=== PATIENT | male | born 1995 | race Caucasian/White ===

== ENCOUNTER 2021-10-31 18:42 | Emergency (ER) | payer BC ==
[2021-10-31 19:10] VITALS: O2SAT 98
[2021-10-31] MEDS ORDERED: TORAdol 30 mg Injection IM ONE (19:20)
[2021-10-31] MEDS ORDERED: Norflex 60 MG/2 ML IM ONE (19:21)
[2021-10-31] MEDS ORDERED: TORAdol 30 mg Injection ONE (19:23)
[2021-10-31] MEDS ORDERED: Norflex 60 MG/2 ML ONE (19:23)
--- NOTE | 2021-10-31 19:45 | ERPHSYRPT ---
- History of Present Illness Time Seen by Provider: 10/31/21 18:57 Source: patient Exam Limitations: no limitations Patient Subjective Stated Complaint: back pain Triage Nursing Assessment: Patient ambulated back to ED and transferred to bed per self. Patient A+O x3. Patient's skin pink, warm and dry. Patient complains of right lower sided back pain that radiates down right leg that started today. Patient complains of constant aching pain with intermittent sharp 9/10. Patient states this am he was working on Oatmeal at [employer] then noticed the pain. Physician History: 26 years old male with history of low back pain presented to the ER with sudden onset right low back pain after he lifted a heavy drill at work. Pain is moderate to severe sharp nature in the right buttock with radiation to right thigh posteriorly. Aggravated with ambulation and partial relief with being still, denies associated numbness tingling weakness of lower extremity, loss of bowel or bladder control. No perineal numbness. Denies any midline back pain. Denies any popping or snapping sensation in the back. Timing/Duration: today, constant, sudden, worse Method of Injury: lifting Quality: radiating, sharp Back Pain Radiation: buttocks Severity of Pain-Max: severe Severity of Pain-Current: severe Modifying Factors: Improves With: rest. Worsens With: movement Associated Symptoms: denies symptoms, lower back pain Previous symptoms: same symptoms as today Allergies/Adverse Reactions: No Known Drug Allergies Allergy (Verified 10/31/21 19:03) Hx Tetanus, Diphtheria Vaccination/Date Given: No Hx Influenza Vaccination/Date Given: No Hx Pneumococcal Vaccination/Date Given: No Immunizations Up to Date: Yes Travel Risk - International Travel Have you traveled outside of the country in past 3 weeks: No - Coronavirus Screening Are you exhibiting any of the following symptoms?: No Close contact with a COVID-19 positive Pt in past 14-21 Days: No - Vaccine Status Have you recieved a Covid-19 vaccination: No - Review of Systems Constitutional: No Symptoms Eyes: No Symptoms Ears, Nose, & Throat: No Symptoms Respiratory: No Symptoms Cardiac: No Symptoms Abdominal/Gastrointestinal: No Symptoms Genitourinary Symptoms: No Symptoms Musculoskeletal: Back Pain Skin: No Symptoms Neurological: No Symptoms Psychological: No Symptoms Endocrine: No Symptoms Hematologic/Lymphatic: No Symptoms Immunological/Allergic: No Symptoms - Past Medical History Pertinent Past Medical History: Yes Neurological History: No Pertinent History ENT History: No Pertinent History Cardiac History: No Pertinent History Respiratory History: No Pertinent History Endocrine Medical History: No Pertinent History Musculoskeletal History: No Pertinent History GI Medical History: No Pertinent History History: No Pertinent History Psycho-Social History: No Pertinent History Male Reproductive Disorders: No Pertinent History Other Medical History: ATRIAL SEPTAL DEFECT, PULMONARY STENOSIS. - Past Surgical History Past Surgical History: No Neuro Surgical History: No Pertinent History Cardiac: No Pertinent History Respiratory: No Pertinent History Gastrointestinal: No Pertinent History Genitourinary: No Pertinent History Musculoskeletal: No Pertinent History Male Surgical History: No Pertinent History - Social History Smoking Status: Never smoker Exposure to second hand smoke: No Drug Use: none Patient Lives Alone: No - Nursing Vital Signs Nursing Vital Signs: Initial Vital Signs Temperature 96.7 F 10/31/21 19:04 Pulse Rate 79 10/31/21 19:04 Respiratory Rate 18 10/31/21 19:04 Blood Pressure 156/80 10/31/21 19:04 O2 Sat by Pulse Oximetry 98 10/31/21 19:04 Pain Scale Pain Intensity 9 - Physical Exam General Appearance: no apparent distress, alert Eye Exam: PERRL/EOMI, eyes nml inspection Ears, Nose, Throat Exam: normal ENT inspection, TMs normal, pharynx normal, moist mucous membranes Neck Exam: normal inspection, non-tender, supple, full range of motion Respiratory Exam: normal breath sounds, lungs clear Cardiovascular Exam: regular rate/rhythm, normal heart sounds Gastrointestinal Exam: soft, normal bowel sounds, No tenderness Back Exam: normal inspection, normal range of motion, muscle spasm, point tenderness (Right sacroiliac area. 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 Skin Exam: normal color SpO2 Interpretation: normal SpO2: 98 O2 Delivery: Room Air Ordered Tests: Medication Summary Discontinued Medications Generic Name Dose Route Start Last Admin Trade Name Freq PRN Reason Stop Dose Admin Ketorolac Tromethamine 30 mg 10/31/21 19:20 10/31/21 19:28 Ketorolac Tromethamine 30 Mg/Ml Inj IM 10/31/21 19:21 30 mg STAT ONE Administration Ketorolac Tromethamine Confirm 10/31/21 19:23 Ketorolac Tromethamine 30 Mg/Ml Inj Administered 10/31/21 19:24 Dose 30 mg .ROUTE .STK-MED ONE Orphenadrine Citrate 60 mg 10/31/21 19:21 10/31/21 19:28 Orphenadrine Citrate 60 Mg/2 Ml Amp IM 10/31/21 19:22 60 mg STAT ONE Administration Orphenadrine Citrate Confirm 10/31/21 19:23 Orphenadrine Citrate 60 Mg/2 Ml Amp Administered 10/31/21 19:24 Dose 60 mg .ROUTE .STK-MED ONE - Progress Progress: improved Progress Note: 10/31/21 patient does not have midline tenderness., Given Toradol and Norflex, on reevaluation feeling better. Negative neuro exam lower extremity. No signs of cauda equina. Do not think needs imaging. I believe is more of a strain, will continue with NSAIDs and muscle relaxants to go home, outpatient follow-up recommended. Discussed signs symptoms of worsening needing return to ER which he seems understanding. Stable for discharge. Counseled pt/family regarding: diagnosis, need for follow-up - Departure Departure Disposition: Home Clinical Impression: Low back pain Qualifiers: Chronicity: acute Back pain laterality: right Sciatica presence: with sciatica Sciatica laterality: sciatica of right side Qualified Code(s): M54.41 - Lumbago with sciatica, right side Condition: Stable Critical Care Time: No Referrals: CLOTILDE CULP MD [Primary Care Provider] - Follow up/PCP as directed (In 2 days for reevaluation) ORTHO - JENNIE DAVIS NP [NON-STAFF PHY W/O PRIVILEGES] - Follow up/PCP as directed (In 2 days for reevaluation) Instructions: Sciatica (DC) Additional Instructions: Neck Tylenol/ibuprofen as needed for pain. Follow-up with primary care and Ortho clinic for reevaluation. Return to ER for intractable low back pain, numbness tingling weakness of lower extremities/loss of bowel or bladder control/perineal numbness. Prescriptions: Ibuprofen 600 mg PO Q6HPRN PRN 10 Days #20 tablet PRN Reason: Pain Cyclobenzaprine HCl 10 mg [Flexeril 10 MG] 10 mg PO TID #20 tablet
[2021-10-31 20:06] VITALS: BP 119/73; PULSE 68
== END 2021-10-31 20:10 | disposition home or self-care (01) ==
LOC: ED 18:42
DX: M54.41 Lumbago with sciatica, right side (principal); X50.0XXA Overexertion from strenuous movement or load, initial encounter; Y93.G9 Activity, other involving cooking and grilling; Y92.511 Restaurant or cafe as the place of occurrence of the external cause; Y99.0 Civilian activity done for income or pay
CPT/HCPCS: 96372; 99284; J1885; J2360